=== PATIENT | female | born 1985 | race Caucasian/White ===

== ENCOUNTER 2017-02-13 15:03 | Emergency (ER) | payer SELFPAY ==
[~2017-02-13] VITALS: Ht 157.5 cm; Wt 63.5 kg
[2017-02-13 18:24] LABS: BASOPHIL % 0.4 % (0-2); PLATELET COUNT 267 x10^3mcL (130-400); RED CELL DISTRIBUTION WIDTH 13.8 % (11.5-14.5)
[2017-02-13 18:28] LABS: UA SPECIFIC GRAVITY 1.015 (1.005-1.035); microscopic required? YES; urine erythrocyte 1+ (NEGATIVE)
[2017-02-13 18:32] LABS: CALCIUM 9.2 mg/dL (8.5-10.1); CARBON DIOXIDE 27.4 mmol/L (21-32); CHLORIDE SERUM 100 mmol/L (98-107); CREATININE SERUM 0.8 mg/dL (0.6-1.0); GFR1 > 60 mL/min; GLUCOSE SERUM 76 mg/dL (74-106); POTASSIUM SERUM 3.8 mmol/L (3.5-5.1); SODIUM SERUM 139 mmol/L (136-145)
[2017-02-13 18:36] LABS: ALBUMIN 4.2 g/dL (3.4-5.0); ALKALINE PHOSPHATASE 83 U/L (46-116); ALT/SGPT 25 U/L (14-59); AMYLASE 55 U/L (25-115); AST/SGOT 11 U/L (15-37); BILIRUBIN TOTAL 0.71 mg/dL (0.20-1.00); LIPASE 115 IU/L (73-393); TOTAL PROTEIN, SERUM 8.6 g/dL (6.4-8.2)
[2017-02-13 18:43] LABS: AMPHETAMINE QUAL UR POSITIVE (NEG <=1000)
[2017-02-13 20:48] VITALS: BP 124/76
== END 2017-02-13 20:48 | disposition home or self-care (01) ==
LOC: ED 15:03
PROVIDERS: Emergency Medicine
DX: N39.0 Urinary tract infection, site not specified (principal); F15.10 Other stimulant abuse, uncomplicated; F12.10 Cannabis abuse, uncomplicated; I10 Essential (primary) hypertension
CPT/HCPCS: J0696; J1885; J2405; J7030; Q9967